=== PATIENT | female | born 1980 | race Hispanic/Latino ===

== ENCOUNTER 2019-06-22 06:22 | Day surgery (SDC) | payer MEDICAID, OTHER ==
--- NOTE | 2019-06-22 07:10 | History and Physical Report ---
History of Present Illness Date of examination: 06/20/19 Chief complaint: Malpositioned IUD History of present illness: Pt is a 38 year old female who presents with a change in her bleeding pattern and finding of no intrauterine IUD on pelvic ultrasound on 06/02/19. She then had an abdominal x-ray on 06/03/19 that demostrates the IUD on the left side of the pelvis. She also does not desire future fertility. Past History Past Medical History: no pertinent history Past Surgical History: other (dental surgery ) Family/Genetic History: cancer Social history: - Obstetrical History : 3 Para: 3 Hx # Term Pregnancies: 3 Number of Pregnancies: 0 Spontaneous Abortions: 0 Induced : 0 Number of Living Children: 3 Medications and Allergies Allergies Allergy/AdvReac Type Severity Reaction Status Date / Time No Known Allergies Allergy Verified 06/16/19 12:44 Home Medications Medication Instructions Recorded Confirmed Last Taken Type No Known Home Medications [No 06/16/19 06/16/19 Unknown History Reported Home Medications] Active Meds: Active Medications Lactated Ringer's (Lactated Ringers) 1,000 mls @ 100 mls/hr IV DIRECT SWATI Review of Systems All systems: negative - Physical Exam Breasts: Positive: deferred Cardiovascular: Regular rate Lungs: Positive: Clear to auscultation Abdomen: Positive: soft Extremities: Positive: normal Results Result Diagrams: 06/22/19 07:44 All other labs normal. Assessment and Plan A: Malpositioned IUD Undesired Fertility P: Proceed with Laproscopic IUD removal, possible bilateral tubal ligation and other indicated procedures
[2019-06-22] MEDS ORDERED: ANCEF/STERILE WATER 2 GM/20 ML 2 GM/20 ML SYRINGE IV NR (07:30)
[2019-06-22] MEDS ORDERED: LACTATED RINGERS 1,000 ML IV SCH (07:30)
--- NOTE | 2019-06-22 07:36 | Anesthesia Consultation ---
Anesthesia Consult and Med Hx Date of service: 06/22/19 - Airway Anesthetic Teeth Evaluation: Good ROM Head & Neck: Adequate Mental/Hyoid Distance: Adequate Mallampati Class: Class II Intubation Access Assessment: Good - Pulmonary Exam CTA: Yes - Cardiac Exam Cardiac Exam: RRR - Pre-Operative Health Status ASA Pre-Surgery Classification: ASA1 Proposed Anesthetic Plan: General - Pulmonary Hx Asthma: No COPD: No Hx Pneumonia: No - Cardiovascular System Hx Hypertension: No Hx Coronary Artery Disease: No Hx Heart Attack/AMI: No Hx Angina: No Hx Cardia Arrhythmia: No Hx Heart Murmur: No - Central Nervous System Hx Seizures: No Hx Psychiatric Problems: No - Endocrine Hx Renal Disease: No Hx End Stage Renal Disease: No Hx Hypothyroidism: No Hx Hyperthyroidism: No - Hematic Hx Anemia: No Hx Sickle Cell Disease: No - Other Systems Hx Alcohol Use: No Hx Cancer: No
--- NOTE | 2019-06-22 07:37 | Anesthesia Day of Surgery ---
Anesthesia Day of Surgery - Day of Surgery Patient Examined: Yes Patient H&P Reviewed: Yes Patient is NPO: Yes
[2019-06-22] MEDS ORDERED: ZEMURON IV ONE (08:00)
[2019-06-22] MEDS ORDERED: DECADRON ONE (08:00)
[2019-06-22] MEDS ORDERED: TORADOL ONE (08:00)
[2019-06-22] MEDS ORDERED: ZOFRAN ONE (08:00)
[2019-06-22] MEDS ORDERED: REGLAN ONE (08:00)
[2019-06-22 08:01] LABS: Hematocrit 32.3 % (30.3-42.9); Hemoglobin 10.8 gm/dl (10.1-14.3); Mean Corpuscular HGB Conc 34 % (30-34); Mean Corpuscular Volume 81 fl (79-97); Platelet Count 278 K/mm3 (140-440); Red Blood Count 3.99 M/mm3 (3.65-5.03)
[2019-06-22] MEDS ORDERED: VERSED ONE (08:49)
[2019-06-22] MEDS ORDERED: SUBLIMAZE ONE (08:49)
[2019-06-22] MEDS ORDERED: DIPRIVAN 10 MG/ML IV ONE (08:50)
[2019-06-22] MEDS ORDERED: MARCAINE 0.5% INFILTRATI ONE ×2 (09:24→09:31)
[2019-06-22] MEDS ORDERED: NACL 0.9% IR ONE (09:31)
[2019-06-22] MEDS ORDERED: MORPHINE ONE (09:50)
[2019-06-22] MEDS ORDERED: SILVER NITRATE TP ONE ×2 (10:15→10:16)
[2019-06-22 11:22] VITALS: BP 105/64
--- NOTE | 2019-06-22 11:47 | Operative Report ---
Operative Report Operative Report: Date of procedure: June Preoperative diagnosis: 1) Malpositioned IUD 2) Multiparity desires permanent sterilization Postoperative diagnosis: Same Procedure: Laparoscopic IUD removal and bilateral tubal ligation via Filshie clip method Surgeon: Didi Chatterjee MD Ear Nose And Throat Specialist: Humera Russell MD Anesthesia: General endotracheal anesthesia Findings: 1) Small anteoverted uterus that sounded to 8 cm 2) IUD noted to be adherent to the omentum 3) Normal appearing tubes and ovaries Estimated blood loss: 25 mL Specimens: IUD and portion of omentum to pathology Complications: None. Counts correct 2 Disposition: Stable to PACU Indications for procedure: Pt is a 38 year old female who presents with evidence of extrauterine IUD on abdominal xray and no desire for future fertility. Operation in detail: After the risks, benefits, alternatives and complications of the procedure were explained to the patient, she gave informed consent for the procedure. She was subsequently taken to the operating room with her IV noted to be running and placed in the dorsal supine position with sequential compression devices functioning. General endotracheal anesthesia was then induced without difficulty. An exam under anesthesia was then performed yielding a small anteverted uterus. The patient was then placed in the dorsal lithotomy position and prepped and draped in normal sterile fashion. A timeout was then performed. A russell catheter was placed. An open sided speculum was placed into the vagina for visualization of the cervix. A single-tooth tenaculum was placed on the anterior lip of the cervix for traction. The uterus was then sounded to 8 cm. A uterine manipulator was then placed. The single-tooth tenaculum and speculum were then removed from the vagina. The surgeon's gloves were then changed. Attention was then turned to entry into the abdominal cavity. A 5 mm infraumbilical incision was made with an 11 blade. The skin was grasped on either side of the umbilicus and tented up. The Veres needle was placed into the peritoneal cavity, confirmed with a saline drop test. The abdomen was then insufflated with CO2 gas to a pressure of 15 mmHg. A 5 mm Visiport trocar was then placed. An anatomic survey was then performed with findings as indicated above. An 8 mm trocar was placed in the LLQ under direct visualization. A 5 mm trocar was placed in the RLQ under direct visualization. The patient was placed in the Trendelenburg position. At this time survey of the abdomen revealed the IUD adherent to the omentum. It was grasped with a grasper and the 5 mm Ligasure was used to ligate a small portion of the omentum thereby freeing the IUD. The IUD and omental piece were then removed through the 8 mm trocar and sent to pathology. Attention was then turned to the tubal ligation. The uterus was elevated and two Filshie clips were then placed across each fallopian tubes. At this time, all instruments were removed from the peritoneal cavity. The pneumoperitoneum was released and the trocars were removed. All three incisions were then infiltrated with quarter percent Marcaine. The incisions were then reapproximated with 4-0 Vicryl in a subcuticular fashion, then covered with skin glue. Attention was then turned to the vagina where all instruments were then removed atraumatically. The russell was removed. At this time the procedure was ended. The patient was replaced into the dorsal supine position and extubated without difficulty. She was subsequently taken to the PACU in stable condition. All instrument, needle and lap counts were correct 2.
--- NOTE | 2019-06-22 11:51 | Short Stay Summary ---
Short Stay Documentation Date of service: 06/22/19 - History H&P: dictated Social history: - Allergies and Medications Current Medications: Allergies No Known Allergies Allergy (Verified 06/16/19 12:44) Home Medications Medication Instructions Recorded Confirmed Last Taken Type No Known Home Medications [No 06/16/19 06/16/19 Unknown History Reported Home Medications] Active Medications Lactated Ringer's (Lactated Ringers) 1,000 mls @ 100 mls/hr IV DIRECT SWATI Last Admin: 06/22/19 07:55 Dose: 100 mls/hr Documented by: Cefazolin Sodium (Ancef/Sterile Water 2 Gm/20 Ml) 2 gm in 20 mls @ 80 mls/hr IV PREOP NR; Protocol Stop: 06/22/19 16:00 - Physical exam Breasts: deferred - Brief post op/procedure progress note Date of procedure: 06/22/19 Pre-op diagnosis: 1) Malpositioned IUD 2) Undesired Fertility Post-op diagnosis: same Procedure: Laparoscopic IUD Removal and Bilateral Tubal Ligation via Filshie Clip Method Anesthesia: GETA Findings: 1) Small anteoverted uterus that sounded to 8 cm 2) IUD noted to be adherent to the omentum 3) Normal appearing tubes and ovaries Surgeon: MAX CHATTERJEE Yarn Examiner Skeins: ROSA ELENA HESS Estimated blood loss: minimal Pathology: list (IUD and piece of omentum) Specimen disposition: to lab Condition: stable - Hospital course Hospital course: Pt underwent laparoscopic IUD removaland bilateral tubal ligation via Filshie Clip method which she tolerated well. She was observed in the PACU until she met discharge criteria.She will follow up in [address] Chatterjee in the office. - Disposition Condition at discharge: Stable Disposition: DC-01 TO HOME OR SELFCARE - Discharge Diagnoses (1) Malpositioned IUD Status: Acute Qualifiers: Encounter type: sequela Qualified Code(s): T83.32XS - Displacement of intrauterine contraceptive device, sequela (2) Encounter for sterilization Status: Acute Short Stay Discharge Plan Activity: other (Nothing in vagina x 4 wks ) Weight Bearing Status: Full Weight Bearing Diet: regular Wound: keep clean and dry Follow up with: MAX CHATTERJEE MD [Staff Physician] - 07/06/19 (Please call to schedule incision check appt ) Forms: Outpatient Surgery DC Inst. Prescriptions: Ibuprofen [Motrin] 800 mg PO Q8HR PRN #30 tablet PRN Reason: Pain, Moderate (4-6) oxyCODONE /ACETAMINOPHEN [Percocet 5/325] 1 tab PO Q6HR PRN #40 tablet PRN Reason: Pain
--- NOTE | 2019-06-22 13:15 | Post Anesthesia Evaluation ---
- Post Anesthesia Evaluation Patient Participated: Yes Airway Patent: Yes Stable Respiratory Function: Yes Nausea/Vomiting: No Temp > 96.8F: Yes Pain Manageable: Yes Adequeate Hydration: Yes Anesthesia Complications: No Block Receding Appropriately: Not Applicable Patient on Ventilator: No
== END 2019-06-22 06:23 | disposition home or self-care (01) ==
LOC: OR 06:22
PROVIDERS: ATTEND Obstetrics & Gynecology
DX: Z30.2 Encounter for sterilization (principal); T83.32XA Displacement of intrauterine contraceptive device, initial encounter; Z79.899 Other long term (current) drug therapy; Z98.890 Other specified postprocedural states; Z80.8 Family history of malignant neoplasm of other organs or systems; Z82.49 Family history of ischemic heart disease and other diseases of the circulatory system
CPT/HCPCS: 36415; 49329; 58671; 81025; 85027; 86850; 86900; 86901; 88300; 88305; A4217; J0690; J1100; J1885; J2250; J2270; J2405; J2704; J2765; J3010; J7120; 88302